=== PATIENT | male | born 1935 | race Caucasian/White ===

== ENCOUNTER 2017-09-03 10:49 | Day surgery (SDC) | payer OTHER ==
[~2017-09-03] VITALS: Ht 170.2 cm; Wt 83.7 kg
[2017-09-03] VITALS (12 sets, daily range): BP systolic 111–133; BP diastolic 61–79
[2017-09-03] MEDS ORDERED: LISI-604 PO (11:42)
[2017-09-03] MEDS ORDERED: IBUP-2264 PO (11:42)
[2017-09-03] MEDS ORDERED: FINA5TAB11 PO (11:42)
[2017-09-03] MEDS ORDERED: ASPI81TA52 PO (11:42)
[2017-09-03] MEDS ORDERED: OXYB5TAB11 PO (11:42)
[2017-09-03] MEDS ORDERED: CHOL10002 PO (11:42)
[2017-09-03] MEDS ORDERED: ASCO-261 PO (11:42)
[2017-09-03] MEDS ORDERED: diphenhydrAMINE 25mg capsule PO PRN (12:00)
[2017-09-03] MEDS ORDERED: nitroGLYCERIN 0.4mg SUBLingual tab SL PRN ×2 (12:00→15:25)
[2017-09-03] MEDS ORDERED: normal saline 1000ml 1,000 ML IV SCH ×2 (12:00→15:25)
[2017-09-03] MEDS ORDERED: LORazepam 0.5 MG tablet PO PRN (12:00)
[2017-09-03 12:44] LABS: BASOPHILS % (AUTO) 0.5 % (0-1); EOSINOPHILS % (AUTO) 0.7 % (0-6); HEMATOCRIT 45.7 % (42.0-52.0); HEMOGLOBIN 15.7 g/dl (14.0-17.9); LYMPHOCYTES # (AUTO) 1.3 X10'3 (1.1-4.8); LYMPHOCYTES % (AUTO) 22.5 % (21-51); MEAN CORPUSCULAR HEMOGLOBIN 31.8 PG (27.0-31.0); MEAN CORPUSCULAR HGB CONC 34.3 % (33.0-36.5); MEAN CORPUSCULAR VOLUME 92.7 FL (78-98); MONOCYTES # (AUTO) 0.6 X10'3 (0-0.9); MONOCYTES % (AUTO) 9.6 % (2-12); NEUTROPHILS # (AUTO) 3.9 X10'3 (1.8-7.7); NEUTROPHILS % (AUTO) 66.7 % (42-75); PLATELET COUNT 234 X10'3 (140-440); RED BLOOD COUNT 4.93 X10'6 (4.70-6.10); RED CELL DISTRIBUTION WIDTH 12.9 % (11.5-14.5); WHITE BLOOD COUNT 5.9 X10'3 (4.5-11.0)
[2017-09-03 12:54] LABS: ALBUMIN 3.6 G/DL (3.4-5.0); ANION GAP 8 (8-16); BLOOD UREA NITROGEN 17 MG/DL (7-18); BUN/CREATININE RATIO 16.7 (5.4-32.0); CALCIUM 10.5 MG/DL (8.5-10.1); CHLORIDE 103 MMOL/L (99-107); CREATININE 1.02 MG/DL (0.60-1.10); GLUCOSE 112 MG/DL (70-104); PARTIAL THROMBOPLASTIN TIME 24 SECONDS (22-32); POTASSIUM 4.1 MMOL/L (3.5-5.1); PROTHROMBIN TIME 10.7 SECONDS (9.0-12.0); SODIUM 136 MMOL/L (135-145); TOTAL CARBON DIOXIDE 25.3 MMOL/L (24-32); eGFR 70 ML/MIN
[2017-09-03] MEDS ORDERED: midazolam 2 mg/2 ml injection ONE (13:10)
[2017-09-03] MEDS ORDERED: fentaNYL/PF 50MCG/1 ML 2ML syringe ONE (13:10)
[2017-09-03] MEDS ORDERED: iohexol 350 MG/ML 50ML vial IV ONE (13:10)
[2017-09-03] MEDS ORDERED: iohexol 350MG/ML 100ml bottle IV ONE (13:10)
[2017-09-03] MEDS ORDERED: LIDOcaine 1% 30ml preserv. free vial ONE (13:24)
[2017-09-03] MEDS ORDERED: acetaminophen 325mg tablet PO PRN (15:25)
[2017-09-03] MEDS ORDERED: HYDROcodone/acetaminophen 5mg/325mg tablet PO PRN (15:25)
[2017-09-03] MEDS ORDERED: OXAZEpam 15mg capsule PO PRN (15:25)
[2017-09-03] MEDS ORDERED: HYDROcodone/acetaminophen 10/325mg tab PO PRN (15:25)
[2017-09-03] MEDS ORDERED: ondansetron/PF 4mg/2ml inj IV PRN (15:25)
[2017-09-03] MEDS ORDERED: proCHLORperazine 10 MG/2 ml inj IV PRN (15:25)
== END 2017-09-03 20:00 | disposition home or self-care (01) ==
LOC: SSTAY O 10:49
PROVIDERS: ATTEND Internal Medicine Cardiovascular Disease
DX: I25.10 Atherosclerotic heart disease of native coronary artery without angina pectoris (principal); I10 Essential (primary) hypertension; I45.19 Other right bundle-branch block; I44.0 Atrioventricular block, first degree; K21.9 Gastro-esophageal reflux disease without esophagitis; E11.9 Type 2 diabetes mellitus without complications; Z72.89 Other problems related to lifestyle; Z79.82 Long term (current) use of aspirin; Z79.1 Long term (current) use of non-steroidal anti-inflammatories (NSAID); Z87.891 Personal history of nicotine dependence; Z98.52 Vasectomy status; Z85.038 Personal history of other malignant neoplasm of large intestine; Z79.899 Other long term (current) drug therapy; Z98.890 Other specified postprocedural states
CPT/HCPCS: 36415; 71045; 80048; 82948; 85025; 85610; 85730; 93005; 93458; 99152; 99153; A6257; C1760; C1769; J1644; J2250; J3010; J3490; J7030; Q0163; Q9967; A4620